=== PATIENT | male | born 1960 | race Caucasian/White ===

== ENCOUNTER 2017-01-14 12:12 | Day surgery (SDC) | payer OTHER ==
[~2017-01-14] VITALS: Ht 185.4 cm; Wt 104.1 kg
[2017-01-14] MEDS ORDERED: MUCINEX1200 MG PO (12:36)
[2017-01-14] MEDS ORDERED: CRESTOR 10MG10 MG PO (12:36)
[2017-01-14 12:42] VITALS: BP 112/72; PULSE 62; TEMP 98.6
[2017-01-14 14:15] VITALS: BP 116/69; PULSE 64; TEMP 98.5
[2017-01-14 14:30] VITALS: BP 128/73; PULSE 64
[2017-01-14 14:45] VITALS: BP 107/77; PULSE 62
[2017-01-14 14:49] VITALS: BP 118/88; PULSE 61
== END 2017-01-14 15:42 | disposition home or self-care (01) ==
LOC: SDCO 12:12
DX: Z12.11 Encounter for screening for malignant neoplasm of colon (principal); D12.1 Benign neoplasm of appendix; K64.0 First degree hemorrhoids; E03.9 Hypothyroidism, unspecified; E78.00 Pure hypercholesterolemia, unspecified
CPT/HCPCS: OP; J2250; J3010; J7030

== ENCOUNTER 2021-10-19 14:52 | Emergency (ER) | payer OTHER ==
[~2021-10-19] VITALS: Ht 185.4 cm; Wt 108.6 kg
[~2021-10-19 14:52] MED LIST: CRESTOR 10MG10 MG PO; MUCINEX1200 MG PO
[2021-10-19 15:30] LABS: BASO # 0.1 K/mm3 (0.0-0.2); BASO % 0.6 % (0.0-2.0); EOS # 0.5 K/mm3 (0.0-0.7); GRAN # 6.4 K/mm3 (1.4-6.5); GRAN % 64.9 % (42.2-75.2); HEMATOCRIT 51.5 % (42.0-52.0); MEAN CELL VOLUME 91 fl (80.0-100.0); MEAN CORPUSCULAR HEMOGLOBIN 32 pg (27-31); MEAN CORPUSCULAR HGB CONC 35 g/dl (33.0-37.0); MEAN PLATELET VOLUME 9.8 fl (7.4-10.4); MONO # 0.9 K/mm3 (0.1-0.6); PLATELET COUNT 250 K/mm3 (130-400); RED BLOOD COUNT 5.65 M/mm3 (4.20-5.60); REDCELL DISTRIBUTION WIDTH-CV 13.6 % (11.5-14.5)
[2021-10-19 15:38] LABS: PROTHROMBIN TIME 11.8 SECONDS (9.7-12.8)
[2021-10-19 15:40] LABS: PARTIAL THROMBOPLASTIN TIME 32.5 SECONDS (26.0-37.0)
[2021-10-19 15:49] LABS: ALBUMIN 4.2 gm/dL (3.4-4.8); CALCIUM 8.8 mg/dL (8.4-10.2); CREATININE, serum 0.83 mg/dL (0.72-1.25); POTASSIUM 3.5 mmol/L (3.5-4.5); TOTAL PROTEIN 7.5 gm/dL (6.2-8.1)
[2021-10-19 15:59] LABS: BILIRUBIN,TOTAL 0.4 mg/dL (0.2-1.2)
[2021-10-19 16:00] LABS: TROPONIN-I 0.179 ng/mL (0.00-0.033)
[2021-10-19 16:44] VITALS: BP 132/72; PULSE 67; TEMP 98.2
== END 2021-10-19 16:44 | disposition short-term general hospital (02) ==
LOC: COL.ER 14:52
PROVIDERS: Emergency Medicine
DX: I21.4 Non-ST elevation (NSTEMI) myocardial infarction (principal); E66.9 Obesity, unspecified; Z20.822 Contact with and (suspected) exposure to COVID-19
CPT/HCPCS: J1644; J2270

== ENCOUNTER 2021-11-09 12:09 | Outpatient (RCR) | payer OTHER | END 2021-11-11 | disposition home or self-care (01) | LOC: COL.CR | DX: Z48.812 Encounter for surgical aftercare following surgery on the circulatory system (principal); Z95.5 Presence of coronary angioplasty implant and graft ==

== ENCOUNTER → 2021-12-12 | Outpatient (RCR) | payer OTHER | END | disposition home or self-care (01) | LOC: COL.CR | DX: Z48.812 Encounter for surgical aftercare following surgery on the circulatory system (principal); Z95.5 Presence of coronary angioplasty implant and graft ==

== ENCOUNTER → 2023-11-25 | Outpatient (CLI) | payer OTHER | LOC: MHCPAIN 09:21 | DX: M47.26 Other spondylosis with radiculopathy, lumbar region (principal); M48.061 Spinal stenosis, lumbar region without neurogenic claudication; E78.5 Hyperlipidemia, unspecified; N40.0 Benign prostatic hyperplasia without lower urinary tract symptoms; E03.9 Hypothyroidism, unspecified | CPT/HCPCS: G0463 ==

== ENCOUNTER → 2023-12-18 | Outpatient (CLI) | payer OTHER ==
[~2023-12-18] MED LIST changes: +Iohexol 300 - 10 ML VIAL ONE; +Lidocaine PF 2% (20 MG/ML) 2 ML VIAL ONE
== END ==
LOC: MHCPAIN 12:31
DX: M54.16 Radiculopathy, lumbar region (principal)
CPT/HCPCS: J1100; Q9967

== ENCOUNTER → 2024-01-07 | Outpatient (CLI) | payer OTHER ==
[~2024-01-07] MED LIST changes: -Iohexol 300 - 10 ML VIAL ONE; -Lidocaine PF 2% (20 MG/ML) 2 ML VIAL ONE
== END ==
LOC: MHCPAIN 09:48
DX: M51.36 Other intervertebral disc degeneration, lumbar region (principal); M54.50 Low back pain, unspecified; G89.29 Other chronic pain; N40.0 Benign prostatic hyperplasia without lower urinary tract symptoms; E78.5 Hyperlipidemia, unspecified
CPT/HCPCS: G0463